=== PATIENT | female | born 1990 | race Caucasian/White ===

== ENCOUNTER 2020-10-08 05:35 | Emergency (ER) | payer OTHER ==
[2020-10-08 05:44] VITALS: TEMP 97.9
--- NOTE | 2020-10-08 05:49 | ED ---
Recheck HPI - General Source: patient, RN notes reviewed, old records reviewed Mode of arrival: ambulatory Limitations: no limitations - History of Present Illness MD Complaint: abnormal lab (rule out torsion) -: minutes(s) Returns Today for: persistent/worsening pain related to initial visit Symptoms Since Prior Visit: worsening pain Context: planned re-check Associated Symptoms: none, abdominal pain Treatments Prior to Arrival: urinary catheter in place, Given Pain Meds on <Jesse Babcock - Last Filed: 10/08/20 06:54> <Salvador Soto - Last Filed: 10/08/20 07:54> - General Chief Complaint: Abdominal Pain Stated Complaint: abd pain Time Seen by Provider: 10/08/20 05:48 - History of Present Illness Initial Comments: This is a 30-year-old female presents today for evaluation patient has a semi- transfer from an outside hospital sent in for ultrasound to rule out possible torsion. Patient did drive herself to the hospital in transfer, she is a denies chance of possible currently. Severe abdominal pain. Otherwise no injuries no fevers no other complaints (Jesse Babcock) - Related Data Allergies Allergy/AdvReac Type Severity Reaction Status Date / Time Penicillins Allergy Anaphylaxis Verified 10/08/20 05:44 Review of Systems ROS Other: All systems not noted in ROS Statement are negative. <Jesse Babcock - Last Filed: 10/08/20 06:54> ROS Other: All systems not noted in ROS Statement are negative. <Salvador Soto - Last Filed: 10/08/20 07:54> ROS Statement: Those systems with pertinent positive or pertinent negative responses have been documented in the HPI. Past Medical History Past Medical History: Fibromyalgia Additional Past Medical History / Comment(s): Endometreiosis, RA History of Any Multi-Drug Resistant Organisms: None Reported Additional Past Surgical History / Comment(s): D&C Past Psychological History: ADD/ADHD Smoking Status: Current every day smoker Past Alcohol Use History: None Reported Past Drug Use History: None Reported <Jesse Babcock - Last Filed: 10/08/20 06:54> General Exam Limitations: no limitations General appearance: alert, in no apparent distress Head exam: Present: atraumatic, normocephalic, normal inspection Eye exam: Present: normal appearance, PERRL, EOMI. Absent: scleral icterus, conjunctival injection, periorbital swelling ENT exam: Present: normal exam, mucous membranes moist Neck exam: Present: normal inspection. Absent: tenderness, meningismus, lymphadenopathy Respiratory exam: Present: normal lung sounds bilaterally. Absent: respiratory distress, wheezes, rales, rhonchi, stridor Cardiovascular Exam: Present: regular rate, normal rhythm, normal heart sounds. Absent: systolic murmur, diastolic murmur, rubs, gallop, clicks GI/Abdominal exam: Present: soft, normal bowel sounds. Absent: distended, tenderness, guarding, rebound, rigid Extremities exam: Present: normal inspection, full ROM, normal capillary refill. Absent: tenderness, pedal edema, joint swelling, calf tenderness Back exam: Present: normal inspection Neurological exam: Present: alert, oriented X3, CN II-XII intact Psychiatric exam: Present: normal affect, normal mood Skin exam: Present: warm, dry, intact, normal color. Absent: rash <Jesse Babcock - Last Filed: 10/08/20 06:54> Course <Jesse Babcock - Last Filed: 10/08/20 06:54> Vital Signs 10/08/20 05:40 Temperature 97.9 F Pulse Rate 65 Respiratory 22 Rate Blood Pressure 120/84 O2 Sat by Pulse 97 Oximetry - Reevaluation(s) Reevaluation #1: 10/08/20 06:55 Medical record is reviewed 10/08/20 06:55 Transferring paperwork is also been reviewed (Jesse Babcock) Reevaluation #2: 10/08/20 06:55 Patient currently does have pain control (Jesse Babcock) Medical Decision Making <Salvador Soto - Last Filed: 10/08/20 07:54> - Medical Decision Making 30-year-old presented emergency department for left lower abdominal pain was seen at an outside facility and sent here for ultrasound. WAS OBTAIN DIFFICULT TO OBTAIN LEFT OVARY, RIGHT OVARY WITHIN NORMAL LIMITS. I DID GO BACK IN AND REEVALUATED SHE STATES THAT HER PAIN HAS IMPROVED AND STATES THAT IT WAS IMPROVING BEFORE HER PAIN MEDS. PATIENT ABDOMEN IS SOFT PATIENT WAS SLEEPING UPON REEVALUATION. THIS IS FELT LESS LIKELY BE RELATED TO OVARIAN TORSION. I DID OFFER LAB WORK AND CT PATIENT DECLINES. PATIENT DISCHARGED IN STABLE CONDITION. (Salvador Soto) - Lab Data Lab Results 10/08/20 10/08/20 Range/Units 06:19 06:19 Urine Color Yellow Urine Appearance Cloudy H (Clear) Urine pH 7.0 (5.0-8.0) Ur Specific Phyllis 1.029 (1.001-1.035) Urine Protein Trace H (Negative) Urine Glucose (UA) Negative (Negative) Urine Ketones Negative (Negative) Urine Blood Small H (Negative) Urine Nitrite Negative (Negative) Urine Bilirubin Negative (Negative) Urine Urobilinogen 3.0 (<2.0) mg/dL Ur Leukocyte Esterase Trace H (Negative) Urine RBC 4 (0-5) /hpf Urine WBC 4 (0-5) /hpf Ur Squamous Epith Cells 1 (0-4) /hpf Amorphous Sediment Rare H (None) /hpf Urine Bacteria Rare H (None) /hpf Urine Mucus Rare H (None) /hpf Urine HCG, Qual Not Detected (Not Detectd) Disposition <Jesse Babcock - Last Filed: 10/08/20 06:54> Is patient prescribed a controlled substance at d/c from ED?: No Time of Disposition: 07:54 <Salvador Soto - Last Filed: 10/08/20 07:54> Clinical Impression: Abdominal pain Disposition: HOME SELF-CARE Condition: Stable Instructions (If sedation given, give patient instructions): Abdominal Pain (ED) Additional Instructions: Please return to the Emergency Department if symptoms worsen or any other concerns. Referrals: Aamir Barreto MD [Primary Care Provider] - 1-2 days
[2020-10-08] MEDS ORDERED: HYDROmorphone 1 MG/ML 1 ML SYRINGE IM STA (05:52)
[2020-10-08 06:32] LABS: Amorphous Sediment,Urine Rare /hpf; Appearance,Urine Cloudy (Clear); Bacteria,Urine Rare /hpf; Bilirubin,Urine Negative (Negative); Blood,Urine Small (Negative); Color,Urine Yellow; Glucose,Urine (UA) Negative (Negative); Ketones,Urine Negative (Negative); Leukocyte Esterase,Urine Trace (Negative); Mucus,Urine Rare /hpf; Nitrite,Urine Negative (Negative); Protein,Urine Trace (Negative); RBC,Urine 4 /hpf (0-5); Specific Gravity,Urine 1.029 (1.001-1.035); Squamous Epithelial Cell,Urine 1 /hpf (0-4); WBC,Urine 4 /hpf (0-5)
--- NOTE | 2020-10-08 07:41 | US ---
EXAMINATION TYPE: US transvaginal plus Dopplers DATE OF EXAM: 10/08/2020 COMPARISON: NONE CLINICAL HISTORY: 30-year-old female Left pelvic pain and nausea x 1 day, 4, para 4, history of irregular cycles. TECHNIQUE: Transvaginal ER exam. Date of LMP: 08/11/2020 FINDINGS: EXAM MEASUREMENTS: Uterus: 10.5 x 5.2 x 6.0 cm Endometrial Stripe: 0.3 cm Right Ovary: 3.7 x 2.3 x 2.2 cm for volume of 9.9 mL. Left Ovary: not seen 1. Uterus: anteverted, the myometrium is mildly heterogeneous 2. Endometrium: small amount of fluid seen within the uterine cavity 3. Right Ovary: wnl with follicular change. 4. Left Ovary: not seen due to overlying bowel gas Spectral, color and waveform doppler imaging shows good arterial and venous flow within the right o vary; there is no evidence for ovarian torsion within the right ovary. Venous flow is demonstrated wi th faint arterial flow as well. 5. Bilateral Adnexa: wnl 6. Posterior cul-de-sac: wnl IMPRESSION: Normal follicular change in the right ovary. No sonographic evidence for right ovarian torsion. The l eft ovary could not be visualized.
[2020-10-08] MEDS ORDERED: IBUPROFEN 600 MG STARTER PACK 4 TAB BTL PO STA (07:54)
[2020-10-08] MEDS ORDERED: ACET/COD 300 MG/30 MG STARTER PACK 6 TAB BTL PO STA (07:54)
[2020-10-08 08:15] VITALS: BP 132/86; PULSE 86; RESP 16
== END 2020-10-08 08:22 | disposition home or self-care (01) ==
LOC: EC 05:35 → SUPCPDRO 05:35 → EC 08:22
DX: R10.30 Lower abdominal pain, unspecified (principal); F17.200 Nicotine dependence, unspecified, uncomplicated; Z88.0 Allergy status to penicillin
CPT/HCPCS: 81001; 81025; 93976; 76830; 96372; 99285; J1170

== ENCOUNTER 2020-11-02 21:31 | Emergency (ER) | payer OTHER ==
[2020-11-02 21:37] VITALS: TEMP 97.9
--- NOTE | 2020-11-02 22:28 | ED ---
Chest Pain HPI - General Chief Complaint: Chest Pain Stated Complaint: Chest Pain Time Seen by Provider: 11/02/20 22:26 Source: patient Mode of arrival: ambulatory Limitations: no limitations - History of Present Illness Initial Comments: This patient is a 30-year-old woman who presents to be evaluated for left-sided chest pain. The patient states that she works midnight since she noticed it intermittently last night. She states it was initially sharp stabbing pain that would last for a second or 2 and go away. She states that when she woke up to day at 4 PM she noticed that it was now constant and then over the past couple of hours has become severe. She states that it is worse if she takes a deep breath. She denies other associated symptoms. No fever or chills. No dyspnea, diaphoresis, nausea or vomiting. No leg pain or swelling. No history of DVT/PE MD Complaint: chest pain Onset/Timin -: days(s) Onset: during rest Pain Location: left chest Pain Radiation: none Severity: severe Quality: sharp Consistency: constant Improves With: nothing Worsens With: inspiration Treatments Prior to Arrival: none - Related Data On Oral Contraceptives: No Previous Rx's Medication Instructions Recorded HYDROcodone/APAP 5-325MG [[place] 1 tab PO Q6HR PRN 3 Days #12 tab 11/03/20 5-325] Ibuprofen 800 mg PO TID #20 tablet 11/03/20 Allergies Allergy/AdvReac Type Severity Reaction Status Date / Time Penicillins Allergy Anaphylaxis Verified 11/02/20 21:37 Review of Systems ROS Statement: Those systems with pertinent positive or pertinent negative responses have been documented in the HPI. ROS Other: All systems not noted in ROS Statement are negative. Constitutional: Denies: fever, chills Respiratory: Denies: cough, dyspnea, wheezes, hemoptysis Cardiovascular: Reports: chest pain. Denies: palpitations, orthopnea, edema, syncope Gastrointestinal: Denies: abdominal pain, nausea, vomiting, diarrhea, constipation Genitourinary: Denies: dysuria, hematuria, abnormal menses Musculoskeletal: Denies: back pain Skin: Denies: rash Neurological: Denies: headache, weakness EKG Findings - EKG Results: EKG: interpreted by ERMD, sinus rhythm, normal axis, normal QRS, normal ST/T EKG shows: tachycardia (Rate approximately 112 bpm) Past Medical History Past Medical History: Fibromyalgia Additional Past Medical History / Comment(s): Endometreiosis, RA History of Any Multi-Drug Resistant Organisms: None Reported Additional Past Surgical History / Comment(s): D&C Past Psychological History: ADD/ADHD Smoking Status: Current every day smoker Past Alcohol Use History: None Reported Past Drug Use History: None Reported General Exam Limitations: no limitations General appearance: alert, in no apparent distress Head exam: Present: atraumatic, normocephalic Eye exam: Present: normal appearance. Absent: scleral icterus, conjunctival injection ENT exam: Present: normal oropharynx Neck exam: Present: normal inspection Respiratory exam: Present: normal lung sounds bilaterally, chest wall tenderness. Absent: respiratory distress, wheezes, rales, rhonchi, stridor, accessory muscle use, decreased breath sounds, prolonged expiratory Cardiovascular Exam: Present: normal rhythm, tachycardia, normal heart sounds. Absent: systolic murmur, diastolic murmur, rubs, gallop GI/Abdominal exam: Present: soft. Absent: distended, tenderness, guarding, rebound, rigid, mass Extremities exam: Present: normal inspection, normal capillary refill. Absent: pedal edema, calf tenderness Back exam: Present: normal inspection. Absent: CVA tenderness (R), CVA tenderness (L) Neurological exam: Present: alert Skin exam: Present: warm, dry, intact, normal color. Absent: rash Course Vital Signs 11/02/20 11/02/20 11/02/20 21:34 22:58 23:40 Temperature 97.9 F Pulse Rate 113 H 105 H Pulse Rate [ 105 H Wedger Machine ] Respiratory 18 18 16 Rate Blood Pressure 144/99 141/81 O2 Sat by Pulse 100 97 Oximetry Disposition Clinical Impression: Pleuritis Disposition: HOME SELF-CARE Condition: Good Instructions (If sedation given, give patient instructions): Pleurisy (DC) Prescriptions: Ibuprofen 800 mg PO TID #20 tablet HYDROcodone/APAP 5-325MG [[place] 5-325] 1 tab PO Q6HR PRN 3 Days #12 tab PRN Reason: Pain Is patient prescribed a controlled substance at d/c from ED?: Yes When asked, does pt state using other controlled substances?: No If prescribed controlled substance>3 days was MAPS reviewed?: Prescribed <3 Days If opioid is for acute pain is fill amount 7 days or less?: Yes If Rx opioid, was Start Talking consent form obtained?: Yes Referrals: None,Stated [Primary Care Provider] - 1-2 days
[2020-11-02] MEDS ORDERED: MORPHINE SULFATE 4 MG/ML SYRINGE IV STA (22:38)
[2020-11-02] MEDS ORDERED: SODIUM CHLORIDE 0.9% 500 ML 500 ML IV STA (22:38)
[2020-11-02] MEDS ORDERED: KETOROLAC 15 MG/ML 1 ML VIAL IVP STA (22:38)
[2020-11-02 23:09] LABS: Basophils % (A) 1 %; Eosinophils # (A) 0.1 k/uL (0-0.7); Eosinophils % (A) 1 %; HCT 39.8 % (34.0-46.0); HGB 13.7 gm/dL (11.4-16.0); Lymphocytes # (A) 1.9 k/uL (1.0-4.8); Lymphocytes % (A) 36 %; MCH 31.8 pg (25.0-35.0); MCHC 34.4 g/dL (31.0-37.0); MCV 92.3 fL (80.0-100.0); Mean Platelet Volume 7.7; Monocytes # (A) 0.4 k/uL (0-1.0); Monocytes % (A) 7 %; Neutrophils # (A) 2.8 k/uL (1.3-7.7); Neutrophils % (A) 53 %; Platelet Count 219 k/uL (150-450); RBC 4.31 m/uL (3.80-5.40); RDW 12.4 % (11.5-15.5); WBC 5.4 k/uL (3.8-10.6)
[2020-11-02 23:24] LABS: D-Dimer <0.17 mg/L FEU (<0.60); Partial Thromboplastin Time 25.5 sec (22.0-30.0); Prothrombin Time 10.9 sec (9.0-12.0)
[2020-11-02 23:25] LABS: Amorphous Sediment,Urine Few /hpf; Appearance,Urine Cloudy (Clear); Bilirubin,Urine Negative (Negative); Blood,Urine Small (Negative); Color,Urine Yellow; Glucose,Urine (UA) Negative (Negative); Ketones,Urine Negative (Negative); Leukocyte Esterase,Urine Negative (Negative); Mucus,Urine Occasional /hpf; Nitrite,Urine Negative (Negative); PH, Urine 6.5 (5.0-8.0); Protein,Urine Negative (Negative); RBC,Urine 8 /hpf (0-5); Specific Gravity,Urine 1.016 (1.001-1.035); Squamous Epithelial Cell,Urine <1 /hpf (0-4); Urobilinogen,Urine <2.0 mg/dL (<2.0); WBC,Urine 1 /hpf (0-5)
[2020-11-02 23:28] LABS: ALT 19 U/L (4-34); AST 28 U/L (14-36); African American GFR (CKD) >90 (>60 ml/min/1.73 sqM); Albumin 4.4 g/dL (3.5-5.0); Alkaline Phosphatase 51 U/L (38-126); Anion Gap 11 mmol/L; Blood Urea Nitrogen 12 mg/dL (7-17); Calcium 9.3 mg/dL (8.4-10.2); Carbon Dioxide 24 mmol/L (22-30); Chloride 105 mmol/L (98-107); Glucose 118 mg/dL (74-99); Magnesium 1.9 mg/dL (1.6-2.3); Non-African American GFR(CKD) >90 (>60 ml/min/1.73 sqM); Potassium 3.5 mmol/L (3.5-5.1); Sodium 140 mmol/L (137-145); Total Protein 7.4 g/dL (6.3-8.2)
--- NOTE | 2020-11-02 23:36 | XR ---
EXAMINATION TYPE: XR chest 2V DATE OF EXAM: 11/02/2020 COMPARISON: NONE HISTORY: Chest pain TECHNIQUE: 2 views FINDINGS: Heart and mediastinum are normal. Lungs are clear. Diaphragm is normal. There are chest fabi ds. Bony thorax is intact. IMPRESSION: Normal chest.
[2020-11-02 23:49] VITALS: RESP 16
[2020-11-03] MEDS ORDERED: MORPHINE SULFATE 4 MG/ML SYRINGE IV STA (00:24)
[2020-11-03 01:26] VITALS: BP 131/95; PULSE 88
== END 2020-11-03 01:52 | disposition home or self-care (01) ==
LOC: EC 21:31
DX: R09.1 Pleurisy (principal); R00.0 Tachycardia, unspecified; F17.200 Nicotine dependence, unspecified, uncomplicated; Z88.0 Allergy status to penicillin
CPT/HCPCS: 36415; 93005; 85379; 80053; 83735; 84484; 85025; 85610; 85730; 81001; 81025; 71046; 99285; 96374; 96375; 96376; 96361 ×3; J2270 ×2; J1885

== ENCOUNTER → 2020-12-25 | Outpatient (CLI) | payer OTHER ==
--- NOTE | 2020-12-28 10:26 | MM ---
Reason for exam: clinical finding. Baseline mammogram. History: Family history of breast cancer in maternal grandmother at age 40. Took hormonal contraceptives for 6 months beginning at age 29. Physical Findings: Nurse did not find any significant physical abnormalities on exam. MG 3D Diag Mammo W/Cad DEXTER Bilateral CC and MLO view(s) were taken. The breast tissue is heterogeneously dense. This may lower the sensitivity of mammography. Finding: There are 4 indeterminate, fine, grouped/clustered calcifications in the upper outer quadrant, middle position of the left breast. These results were verbally communicated with the patient and result sheet given to the patient on 12/25/20. ASSESSMENT: Probably benign, BI-RAD 3 RECOMMENDATION: Follow-up diagnostic mammogram of both breasts in 6 months.
--- NOTE | 2020-12-28 10:28 | USB ---
Reason for exam: clinical finding. History: Family history of breast cancer in maternal grandmother at age 40. Took hormonal contraceptives for 6 months beginning at age 29. US Breast BILAT Right complete breast ultrasound includes all four quadrants, the retroareolar region and axilla. Finding demonstrates no cystic or solid lesion seen. Left complete breast ultrasound includes all four quadrants, the retroareolar region and axilla. Finding demonstrates no cystic or solid lesion seen. These results were verbally communicated with the patient and result sheet given to the patient on 12/25/20. ASSESSMENT: Negative, BI-RAD 1 RECOMMENDATION: Follow-up diagnostic mammogram of both breasts in 6 months. Manage patient on a clinical basis.
== END | disposition home or self-care (01) ==
LOC: RADMAMWWP 13:00
PROVIDERS: ATTEND Family Medicine
DX: R92.1 Mammographic calcification found on diagnostic imaging of breast (principal); Z80.3 Family history of malignant neoplasm of breast
CPT/HCPCS: 77066; 76641; G0279; 77062

== ENCOUNTER 2021-04-26 08:44 | Emergency (ER) | payer OTHER ==
[2021-04-26 08:49] VITALS: RESP 16; TEMP 97.7
[2021-04-26] MEDS ORDERED: HYDROcodone/APAP 5-325MG 1 EACH TAB PO STA (09:11)
--- NOTE | 2021-04-26 09:45 | ED ---
Skin/Abscess/FB HPI - General Chief complaint: Skin/Abscess/Foreign Body Stated complaint: lump on breast Time Seen by Provider: 04/26/21 08:51 Source: patient, RN notes reviewed Mode of arrival: ambulatory Limitations: no limitations - History of Present Illness Initial comments: This a 31-year-old female presents emergency from chief complaint of right breast lump. Patient states that she recently was seen for ultrasound and mammogram as she had some swelling of her left breast and lymph nodes. Patient found to have benign findings and recommended for repeat in 6 months. Patient states she just now developed right sided breast pain with a lump inferior to the nipple. Patient denies any traumano redness. Patient states she just had her menstrual cycle 2 weeks ago. - Related Data Previous Rx's Medication Instructions Recorded Cephalexin [Keflex] 500 mg PO Q6HR #28 cap 04/26/21 Allergies Allergy/AdvReac Type Severity Reaction Status Date / Time Penicillins Allergy Anaphylaxis Verified 04/26/21 09:41 Review of Systems ROS Statement: Those systems with pertinent positive or pertinent negative responses have been documented in the HPI. ROS Other: All systems not noted in ROS Statement are negative. Past Medical History Past Medical History: Fibromyalgia Additional Past Medical History / Comment(s): Endometreiosis, RA History of Any Multi-Drug Resistant Organisms: None Reported Additional Past Surgical History / Comment(s): D&C Past Psychological History: ADD/ADHD Smoking Status: Current every day smoker Past Alcohol Use History: None Reported Past Drug Use History: Marijuana General Exam Limitations: no limitations General appearance: alert, in no apparent distress Head exam: Present: atraumatic, normocephalic, normal inspection Respiratory exam: Present: normal lung sounds bilaterally. Absent: respiratory distress, wheezes, rales, rhonchi, stridor Cardiovascular Exam: Present: regular rate, normal rhythm, normal heart sounds. Absent: systolic murmur, diastolic murmur, rubs, gallop, clicks Neurological exam: Present: alert Skin exam: Present: warm, dry, intact, normal color, other (Right breast inferior to the nipple and they are all approximately 7 o'clock position there is a palpable small lump that is tender with palpation, no drainage no retraction the nipple no orange peeling noted exam performed with RN). Absent: rash Course Vital Signs 08/16/21 08:45 Temperature 97.7 F Pulse Rate 92 Respiratory 16 Rate Blood Pressure 119/82 O2 Sat by Pulse 99 Oximetry Medical Decision Making - Medical Decision Making Ultrasound shows small cystic mass, rule out phlegmon patient a antibiotics warm compresses will follow-up for repeat ultrasound as directed. Disposition Clinical Impression: Lump of right breast Disposition: HOME SELF-CARE Condition: Stable Instructions (If sedation given, give patient instructions): Mastitis (ED) Additional Instructions: Please return to the Emergency Department if symptoms worsen or any other concerns. Prescriptions: Cephalexin [Keflex] 500 mg PO Q6HR #28 cap Is patient prescribed a controlled substance at d/c from ED?: No Referrals: Iam Byrd MD [Primary Care Provider] - 1-2 days Time of Disposition: 10:48
--- NOTE | 2021-04-26 10:11 | USB ---
Reason for exam: clinical finding. History: Family history of breast cancer in maternal grandmother at age 40. Took hormonal contraceptives for 6 months beginning at age 29. US Breast Limited RT Right limited breast ultrasound including focal area of concern, retroareolar and axilla demonstrates a 1.6 x 0.8 x 1.5cm oval, hypoechoic lesion at the posterior nipple at BB and area of pain. Probable phlegmon mass not excluded. Recommend short term follow up. ASSESSMENT: Probably benign, BI-RAD 3 RECOMMENDATION: Ultrasound of the right breast in 1 month. (6 weeks)
[2021-04-26 11:08] VITALS: BP 120/68; PULSE 88
== END 2021-04-26 11:06 | disposition home or self-care (01) ==
LOC: EC 08:44
DX: N63.13 Unspecified lump in the right breast, lower outer quadrant (principal); F17.200 Nicotine dependence, unspecified, uncomplicated; Z88.0 Allergy status to penicillin
CPT/HCPCS: 99283

== ENCOUNTER 2021-04-30 08:21 | Observation (INO) | payer OTHER ==
[2021-04-30] MEDS ORDERED: KETOROLAC 15 MG/ML 1 ML VIAL IVP STA (09:26)
[2021-04-30 09:32] LABS: Basophils % (A) 1 %; Eosinophils # (A) 0.1 k/uL (0-0.7); Eosinophils % (A) 1 %; HGB 14.2 gm/dL (11.4-16.0); Lymphocytes # (A) 1.9 k/uL (1.0-4.8); Lymphocytes % (A) 22 %; MCH 32.5 pg (25.0-35.0); MCHC 33.8 g/dL (31.0-37.0); MCV 95.9 fL (80.0-100.0); Mean Platelet Volume 7.8; Monocytes # (A) 0.5 k/uL (0-1.0); Monocytes % (A) 6 %; Neutrophils % (A) 69 %; Platelet Count 262 k/uL (150-450); RBC 4.38 m/uL (3.80-5.40); RDW 12.8 % (11.5-15.5); WBC 8.8 k/uL (3.8-10.6)
[2021-04-30 09:45] LABS: ALT 16 U/L (4-34); African American GFR (CKD) >90 (>60 ml/min/1.73 sqM); Anion Gap 7 mmol/L; Blood Urea Nitrogen 12 mg/dL (7-17); Calcium 9.1 mg/dL (8.4-10.2); Carbon Dioxide 23 mmol/L (22-30); Chloride 109 mmol/L (98-107); Glucose 103 mg/dL (74-99); Non-African American GFR(CKD) >90 (>60 ml/min/1.73 sqM); Sodium 139 mmol/L (137-145); Total Bilirubin 0.7 mg/dL (0.2-1.3); Total Protein 7.1 g/dL (6.3-8.2)
[2021-04-30 09:53] LABS: AST 38 U/L (14-36); Alkaline Phosphatase 45 U/L (38-126); Potassium 4.6 mmol/L (3.5-5.1)
--- NOTE | 2021-04-30 09:58 | USB ---
Reason for exam: clinical finding. History: Family history of breast cancer in maternal grandmother at age 40. Took hormonal contraceptives for 6 months beginning at age 29. US Breast Limited RT Right limited breast ultrasound including focal area of concern, retroareolar and axilla demonstrates a 2.3 x 1.0 x 2.2cm oval, hypoechoic, vascular lesion at posterior nipple, painful palpable, a 0.8cm lymph node at the axilla and a 0.6cm lymph node at the axilla, slightly larger lesion suspect focal abscess. ASSESSMENT: Probably benign, BI-RAD 3 RECOMMENDATION: Clinical management of the right breast. Consider ultrasound guided aspiration. Manage on a clinical basis.
[2021-04-30] MEDS ORDERED: VANCOMYCIN IV PER PHARMACY 1 EACH MISC MISCELLANE PRN (10:15)
[2021-04-30] MEDS ORDERED: ACETAMINOPHEN TAB 325 MG TAB PO PRN (10:16)
[2021-04-30] MEDS ORDERED: NALOXONE 0.4 MG/ML 1 ML VIAL IV PRN (10:16)
[2021-04-30] MEDS ORDERED: CLINDAMYCIN 600 MG in DEXTROSE 5% IN WATER 50 ML IVPB STA ×2 (10:16)
--- NOTE | 2021-04-30 10:17 | ED ---
General Adult HPI - General Chief complaint: Recheck/Abnormal Lab/Rx Stated complaint: Cyst on Rt Breast Time Seen by Provider: 04/30/21 08:35 Source: patient, RN notes reviewed, old records reviewed Mode of arrival: ambulatory Limitations: no limitations - History of Present Illness Initial comments: 31-year-old with worsening pain and swelling of the right breast. No drainage. No fever. Patient is a nondiabetic otherwise healthy. She denies current . She has been treated with oral antibiotics without improvement. She states the redness and pain has worsened. No abdominal pain nausea vomiting. No reported fever. - Related Data Previous Rx's Medication Instructions Recorded Cephalexin [Keflex] 500 mg PO Q6HR #28 cap 04/26/21 Allergies Allergy/AdvReac Type Severity Reaction Status Date / Time Penicillins Allergy Anaphylaxis Verified 04/26/21 09:41 Review of Systems ROS Statement: Those systems with pertinent positive or pertinent negative responses have been documented in the HPI. ROS Other: All systems not noted in ROS Statement are negative. Past Medical History Past Medical History: Fibromyalgia Additional Past Medical History / Comment(s): Endometreiosis, RA History of Any Multi-Drug Resistant Organisms: None Reported Additional Past Surgical History / Comment(s): D&C Past Psychological History: ADD/ADHD Smoking Status: Current every day smoker Past Alcohol Use History: None Reported Past Drug Use History: Marijuana General Exam Limitations: no limitations General appearance: alert, in no apparent distress Head exam: Present: atraumatic, normocephalic Eye exam: Present: normal appearance, PERRL Neck exam: Present: normal inspection. Absent: tenderness, meningismus Respiratory exam: Present: normal lung sounds bilaterally. Absent: respiratory distress, wheezes Cardiovascular Exam: Present: regular rate, normal rhythm GI/Abdominal exam: Present: soft. Absent: distended, tenderness, guarding Extremities exam: Present: normal inspection, normal capillary refill. Absent: pedal edema Neurological exam: Present: alert, oriented X3, CN II-XII intact. Absent: motor sensory deficit Psychiatric exam: Present: normal affect, normal mood Skin exam: Present: warm, dry, other (Breast exam: Patient has erythema and induration on the lateral aspect of the right nipple. Exam performed with nurse Hall) Course Vital Signs 04/30/21 08:28 Temperature 98.2 F Pulse Rate 78 Respiratory 18 Rate Blood Pressure 120/70 O2 Sat by Pulse 99 Oximetry - Reevaluation(s) Reevaluation #1: 04/30/21 0930 Patient had also been seen by the physician litigation legal assistant who had seen the patient several days prior does indicate that the swelling and erythema is much worse. Medical Decision Making - Medical Decision Making 31-year-old female with increased pain and swelling of the right breast, treated with oral antibiotics and has failed to improve. Showing Hypoechoic Region Likely Abscess. IV Antibiotics Are Initiated. Laboratory Testing Performed Which Is Unremarkable. Patient Will Be Admitted to Dr. Lechuga with Breast Surgery on Consult. - Lab Data Result diagrams: 04/30/21 09:21 04/30/21 09:21 Lab Results 04/30/21 04/30/21 04/30/21 Range/Units 09: 09: 09:21 WBC 8.8 (3.8-10.6) k/uL RBC 4.38 (3.80-5.40) m/uL Hgb 14.2 (11.4-16.0) gm/dL Hct 42.0 (34.0-46.0) % MCV 95.9 (80.0-100.0) fL MCH 32.5 (25.0-35.0) pg MCHC 33.8 (31.0-37.0) g/dL RDW 12.8 (11.5-15.5) % Plt Count 262 (150-450) k/uL MPV 7.8 Neutrophils % 69 % Lymphocytes % 22 % Monocytes % 6 % Eosinophils % 1 % Basophils % 1 % Neutrophils # 6.0 (1.3-7.7) k/uL Lymphocytes # 1.9 (1.0-4.8) k/uL Monocytes # 0.5 (0-1.0) k/uL Eosinophils # 0.1 (0-0.7) k/uL Basophils # 0.0 (0-0.2) k/uL Sodium 139 (137-145) mmol/L Potassium 4.6 (3.5-5.1) mmol/L Chloride 109 H (98-107) mmol/L Carbon Dioxide 23 (22-30) mmol/L Anion Gap 7 mmol/L BUN 12 (7-17) mg/dL Creatinine 0.64 (0.52-1.04) mg/dL Est GFR (CKD-EPI)AfAm >90 (>60 ml/min/1.73 sqM) Est GFR (CKD-EPI)NonAf >90 (>60 ml/min/1.73 sqM) Glucose 103 H (74-99) mg/dL Plasma Lactic Acid Eric 1.1 (0.7-2.0) mmol/L Calcium 9.1 (8.4-10.2) mg/dL Total Bilirubin 0.7 (0.2-1.3) mg/dL AST 38 H (14-36) U/L ALT 16 (4-34) U/L Alkaline Phosphatase 45 (38-126) U/L Total Protein 7.1 (6.3-8.2) g/dL Albumin 4.0 (3.5-5.0) g/dL Disposition Clinical Impression: Breast abscess, Cellulitis Disposition: ADMITTED IP TO THIS [facility] Condition: Stable Is patient prescribed a controlled substance at d/c from ED?: No Referrals: Iam Byrd MD [Primary Care Provider] - 1-2 days Decision to Admit Reason: Admit from EC Decision Date: 04/30/21 Decision Time: 10:22
[2021-04-30] MEDS ORDERED: VANCOMYCIN 1,250 MG in SODIUM CHLORIDE 0.9% 250 ML IVPB STA (10:29)
[2021-04-30] MEDS: SODIUM CHLORIDE 0.9% 1,000 ML IV SCH (10:51)
[2021-04-30] MEDS: HYDROmorphone 0.5 MG/0.5 ML SYRINGE IVP PRN ×5 (10:52→23:13)
[2021-04-30 10:59] LABS: Appearance,Urine Clear (Clear); Bilirubin,Urine Negative (Negative); Blood,Urine Negative (Negative); Color,Urine Light Yellow; Glucose,Urine (UA) Negative (Negative); Ketones,Urine Negative (Negative); Leukocyte Esterase,Urine Trace (Negative); Nitrite,Urine Negative (Negative); PH, Urine 7.5 (5.0-8.0); Protein,Urine Negative (Negative); Specific Gravity,Urine 1.011 (1.001-1.035); Squamous Epithelial Cell,Urine 1 /hpf (0-4); Urobilinogen,Urine <2.0 mg/dL (<2.0); WBC,Urine 12 /hpf (0-5)
[2021-04-30] MEDS: NICOTINE 14MG/24HR PATCH TRANSDERM SCH (12:13)
--- NOTE | 2021-04-30 14:02 | P.GSCN ---
History of Present Illness Consult date: 04/30/21 Reason for Consult: Right breast abscess History of present illness: 31-year-old female presents to the ER with increasing pain right breast near her nipple. Patient was seen in the ER on Monday started on oral Keflex. Patient says symptoms have gotten worse since then. She is otherwise healthy. She is not breast-feeding. No nipple piercings. No history of similar events. Patient is a smoker. Ultrasound was done which showed a probable abscess retroareolar Review of Systems The patient denies any acute changes in vision or hearing, no dysphagia or odynophagia, no chest pain or shortness of breath, no dysuria or hematuria, no headache, no runny nose, no rectal bleeding or melena, no unexplained weight loss Past Medical History Past Medical History: Fibromyalgia Additional Past Medical History / Comment(s): Endometreiosis, RA History of Any Multi-Drug Resistant Organisms: None Reported Additional Past Surgical History / Comment(s): D&C Past Psychological History: ADD/ADHD Smoking Status: Current every day smoker Past Alcohol Use History: None Reported Past Drug Use History: Marijuana - Past Family History Mother History Unknown: Yes Medications and Allergies Home Medications Medication Instructions Recorded Confirmed Type Cephalexin [Keflex] 500 mg PO Q6HR #28 cap 04/26/21 04/30/21 Rx Allergies Allergy/AdvReac Type Severity Reaction Status Date / Time Penicillins Allergy Anaphylaxis Verified 04/30/21 10:29 Surgical - Exam Vital Signs Temp Pulse Resp BP Pulse Ox 98.2 F 78 18 120/70 99 04/30/21 08:28 04/30/21 08:28 04/30/21 08:28 04/30/21 08:28 04/30/21 08:28 Physical exam: General: Well-developed, well-nourished HEENT: Normocephalic, sclerae nonicteric Right breast: Induration and tenderness with mild erythema around the areola, majority of tenderness and induration present laterally in the subareolar location Left breast: No masses, no adenopathy Abdomen: Nontender, nondistended Extremities: No edema Neuro: Alert and oriented Results - Labs 04/30/21 09:21 04/30/21 09:21 Abnormal Lab Results - Last 24 Hours (Table) 08/20/21 08/20/21 Range/Units 09:21 10:47 Chloride 109 H (98-107) mmol/L Glucose 103 H (74-99) mg/dL AST 38 H (14-36) U/L Ur Leukocyte Esterase Trace H (Negative) Urine WBC 12 H (0-5) /hpf Diabetes panel 04/30/21 Range/Units 09:21 Sodium 139 (137-145) mmol/L Potassium 4.6 (3.5-5.1) mmol/L Chloride 109 H (98-107) mmol/L Carbon Dioxide 23 (22-30) mmol/L BUN 12 (7-17) mg/dL Creatinine 0.64 (0.52-1.04) mg/dL Glucose 103 H (74-99) mg/dL Calcium 9.1 (8.4-10.2) mg/dL AST 38 H (14-36) U/L ALT 16 (4-34) U/L Alkaline Phosphatase 45 (38-126) U/L Total Protein 7.1 (6.3-8.2) g/dL Albumin 4.0 (3.5-5.0) g/dL Calcium panel 04/30/21 Range/Units 09:21 Calcium 9.1 (8.4-10.2) mg/dL Albumin 4.0 (3.5-5.0) g/dL Pituitary panel 04/30/21 Range/Units 09:21 Sodium 139 (137-145) mmol/L Potassium 4.6 (3.5-5.1) mmol/L Chloride 109 H (98-107) mmol/L Carbon Dioxide 23 (22-30) mmol/L BUN 12 (7-17) mg/dL Creatinine 0.64 (0.52-1.04) mg/dL Glucose 103 H (74-99) mg/dL Calcium 9.1 (8.4-10.2) mg/dL Adrenal panel 04/30/21 Range/Units 09:21 Sodium 139 (137-145) mmol/L Potassium 4.6 (3.5-5.1) mmol/L Chloride 109 H (98-107) mmol/L Carbon Dioxide 23 (22-30) mmol/L BUN 12 (7-17) mg/dL Creatinine 0.64 (0.52-1.04) mg/dL Glucose 103 H (74-99) mg/dL Calcium 9.1 (8.4-10.2) mg/dL Total Bilirubin 0.7 (0.2-1.3) mg/dL AST 38 H (14-36) U/L ALT 16 (4-34) U/L Alkaline Phosphatase 45 (38-126) U/L Total Protein 7.1 (6.3-8.2) g/dL Albumin 4.0 (3.5-5.0) g/dL Assessment and Plan (1) Breast abscess Narrative/Plan: 31-year-old female with right breast abscess. Options of continued antibiotics, ultrasound-guided or bedside aspiration, incision and drainage. Patient states she will not have anything performed without anesthesia. She is agreeable to incision and drainage in the operating room. We'll schedule for I&D right breast abscess tomorrow. Risks of bleeding, infection, wound, scarring, poor healing, recurrence, fistula. Patient understands and wishes to proceed. Current Visit: Yes Status: Acute Code(s): N61.1 - ABSCESS OF THE BREAST AND NIPPLE SNOMED Code(s): 01491336
[2021-04-30] MEDS: CLINDAMYCIN 600 MG in DEXTROSE 5% IN WATER 50 ML IVPB SCH ×4 (16:54→23:11)
[2021-04-30] MEDS ORDERED: VANCOMYCIN 1,250 MG in SODIUM CHLORIDE 0.9% 250 ML IVPB SCH (20:00)
--- NOTE | 2021-04-30 20:37 | P.HPIM ---
History of Present Illness H&P Date: 04/30/21 Chief Complaint: Right breast abscess History of presenting complaint: This is a pleasant 31-year-old patient follows with Dr. Byrd. Patient at the age of 17 years was diagnosed with rheumatoid arthritis and fibromyalgia. She was that time per her methotrexate and folic acid. Patient did not feel good about it and subsequently at [facility]. The same. Otherwise in good health. She has a 2-year-old daughter. 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 About 2 weeks ago she noticed tenderness in the right breast behind the nipple. It progressively became worse. No fever no chills. No local trauma.. She presented to the ER on April 26. Breast ultrasound was done. A phlegmon could not be ruled out. She was discharged on Keflex 500 mg 4 times a day. She took it for about 2 days. Symptoms have been getting worse. Locks more tenderness. Localized. Decided to come in. Repeat breast ultrasound was done. Review of systems: GEN.: None EYES: None HEENT: None NECK: None RESPIRATORY: None CARDIOVASCULAR: None GASTROINTESTINAL: None GENITOURINARY: None MUSCULOSKELETAL: Chronic joint pains LYMPHATICS: None HEMATOLOGICAL: None PSYCHIATRY: None NEUROLOGICAL: None Past medical history to include: Rheumatoid arthritis, fibromyalgia Social history: Patient lives with her and. 2-year-old daughter. No alcohol. 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 Reviewed Physical examination: VITAL SIGNS: 97.8, 56, 16, 98/60, 99% room air GENERAL: BMI 24.3, reclining in bed, comfortable. EYES: Pupils equal. Conjunctiva normal. HEENT: External appearance of nose and ears normal, oral cavity grossly normal. NECK: JVD not raised; masses not palpable. HEART: First and second heart sounds are normal; no edema. LUNGS: Respiratory rate normal; clear to auscultation. ABDOMEN: Soft, nontender, liver spleen not palpable, no masses palpable. PSYCH: Alert and oriented x3; mood and affect normal. 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 Overlying skin looks rather normal NEUROLOGICAL: Cranial nerves grossly intact; no facial asymmetry, power and sensation grossly intact. LYMPHATICS: No lymph nodes palpable in the axilla and neck INVESTIGATIONS, reviewed in the clinical context: White count 8.8 hemoglobin 14.2 platelets 262 potassium 4.6 creatinine 0.64 Breast ultrasound report noted. Assessment and plan: -Right breast localized phlegmon. Patient's had ALLERGIC reaction to penicillin with hives. No plate the patient on IV clindamycin. General surgery consulted. -Chronic rheumatoid arthritis Patient has not followed with a firearms sales associate for a long time. We'll recommend to follow the same upon discharge -Chronic nicotine dependence, cigarettes smoker Nicotine patch 14 IV clindamycin. Warm compress. Consult general surgery. Care was discussed questions answered. - Past Medical History Past Medical History: Fibromyalgia Additional Past Medical History / Comment(s): Endometreiosis, RA History of Any Multi-Drug Resistant Organisms: None Reported Additional Past Surgical History / Comment(s): D&C Past Psychological History: ADD/ADHD Smoking Status: Current every day smoker Past Alcohol Use History: None Reported Past Drug Use History: Marijuana - Past Family History Mother History Unknown: Yes Medications and Allergies Home Medications Medication Instructions Recorded Confirmed Type Cephalexin [Keflex] 500 mg PO Q6HR #28 cap 04/26/21 04/30/21 Rx Allergies Allergy/AdvReac Type Severity Reaction Status Date / Time Penicillins Allergy Anaphylaxis Verified 04/30/21 10:29 Physical Exam Vitals: Vital Signs Temp Pulse Pulse Resp BP BP Pulse Ox 04/30/21 19:07 54 L 16 04/30/21 19:03 98.3 F 54 L 16 105/64 98 04/30/21 14:32 97.9 F 56 L 18 98/60 99 04/30/21 11:33 97.8 F 56 L 16 98/60 99 04/30/21 11:09 80 18 102/70 99 04/30/21 08:28 98.2 F 78 18 120/70 99 Intake and Output 04/30/21 04/30/21 04/30/21 06:59 14:59 22:59 Other: Voiding Method Toilet # Voids 2 Weight 72.575 kg Results CBC & Chem 7: 04/30/21 09:21 04/30/21 09:21 Labs: Abnormal Lab Results - Last 24 Hours (Table) 04/30/21 04/30/21 Range/Units 09:21 10:47 Chloride 109 H (98-107) mmol/L Glucose 103 H (74-99) mg/dL AST 38 H (14-36) U/L Ur Leukocyte Esterase Trace H (Negative) Urine WBC 12 H (0-5) /hpf Microbiology - Last 24 Hours (Table) 04/30/21 10:47 Urine Culture - Preliminary Urine,Voided Thrombosis Risk Factor Assmnt - Choose All That Apply Any of the Below Risk Factors Present?: No Other Risk Factors: No Thrombosis Risk Factor Assessment Level: Very Low Risk
[2021-04-30] MEDS: NAPROXEN 250 MG TAB PO SCH (21:17)
[2021-05-01] MEDS: SODIUM CHLORIDE 0.9% 1,000 ML IV SCH (00:49)
[2021-05-01] MEDS: CLINDAMYCIN 600 MG in DEXTROSE 5% IN WATER 50 ML IVPB SCH ×4 (04:52→11:42)
[2021-05-01] MEDS ORDERED: LACTATED RINGERS 500 ML IV SCH (05:15)
[2021-05-01] MEDS ORDERED: LACTATED RINGERS 500 ML IV ONE (05:29)
[2021-05-01] MEDS ORDERED: KETOROLAC 15 MG/ML 1 ML VIAL IVP ONE ×2 (05:43→08:48)
[2021-05-01] MEDS: NAPROXEN 250 MG TAB PO SCH (07:52)
[2021-05-01] MEDS: NICOTINE 14MG/24HR PATCH TRANSDERM SCH (07:53)
[2021-05-01 08:04] LABS: African American GFR (CKD) >90 (>60 ml/min/1.73 sqM); Non-African American GFR(CKD) >90 (>60 ml/min/1.73 sqM)
[2021-05-01] MEDS ORDERED: PROPOFOL 10 MG/ML 20 ML VIAL IV ONE (08:05)
[2021-05-01] MEDS ORDERED: MIDAZOLAM 2 MG/2 ML VIAL ONE (08:05)
[2021-05-01] MEDS ORDERED: fentaNYL (PF) 50 MCG/ML 2 ML AMP ONE (08:05)
[2021-05-01] MEDS ORDERED: SODIUM CHLORIDE 0.9% 1,000 ML IV ONE ×2 (08:07→09:05)
[2021-05-01] MEDS ORDERED: BUPIVACAINE (PF) 0.25% 30 ML VIAL SQ ONE (08:21)
[2021-05-01] MEDS ORDERED: KETOROLAC 15 MG/ML 1 ML VIAL ONE (08:49)
[2021-05-01 08:54] VITALS: TEMP 97.4
[2021-05-01] MEDS ORDERED: diphenhydrAMINE 50 MG/ML 1 ML VIAL ONE (09:01)
[2021-05-01] MEDS ORDERED: diphenhydrAMINE 50 MG/ML 1 ML VIAL IVP ONE (09:03)
[2021-05-01] MEDS: HYDROmorphone 0.5 MG/0.5 ML SYRINGE IVP PRN (09:38)
--- NOTE | 2021-05-01 10:10 | P.OP ---
Date of Procedure: 05/01/21 Procedure(s) Performed: PREOPERATIVE DIAGNOSIS: Right breast abscess POSTOPERATIVE DIAGNOSIS: Same PROCEDURE: Incision and drainage right breast abscess SURGEON: Emili EBL: 2 mL ANESTHESIA: Gen. COMPLICATIONS: None OPERATIVE PROCEDURE: Patient sedated for the procedure. Right breast prepped and draped sterilely. Small curvilinear incision made on the edge of the areola at 9:00. Subcutaneous tissues bluntly dissected until the abscess cavity was encountered. This measured approximately 1.5 cm in diameter. Purulent fluid was evacuated and cultured. Area irrigated with saline. Irrigant packed with quarter-inch iodoform gauze. Sterile outer dressings applied. DISPOSITION: Stable to recovery room
[2021-05-01] MEDS ORDERED: VANCOMYCIN TROUGH DUE 1 EACH MISC MISCELLANE ONE (11:00)
[2021-05-01 13:24] VITALS: BP 91/46; PULSE 53; RESP 16
--- NOTE | 2021-05-01 21:18 | P.DS ---
Providers Date of admission: 04/30/21 10:35 Expected date of discharge: 05/01/21 Attending physician: Ashvin Lechuga Consults: 04/30/21 10:17 Consult Physician Routine Consulting Provider: Nash Mock Reason/Comments: Breast abscess Do you want consulting provider notified?: Yes Primary care physician: [facility] Course: Chief Complaint: Right breast abscess History of presenting complaint: This is a pleasant 31-year-old patient follows with Dr. Byrd. Patient at the age of 17 years was diagnosed with rheumatoid arthritis and fibromyalgia. She was that time per her methotrexate and folic acid. Patient did not feel good about it and subsequently at discussed. The same. Otherwise in good health. She has a 2-year-old daughter. 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 About 2 weeks ago she noticed tenderness in the right breast behind the nipple. It progressively became worse. No fever no chills. No local trauma.. She presented to the ER on April 26. Breast ultrasound was done. A phlegmon could not be ruled out. She was discharged on Keflex 500 mg 4 times a day. She took it for about 2 days. Symptoms have been getting worse. Locks more tenderness. Localized. Decided to come in. Repeat breast ultrasound was done. May 01: I&D was carried out by Dr. Jose today. Dressing in place. D iscussed with the patient that she begin 1 week course of NSAIDs and follow naproxen. Warm compresses. Tylenol as needed. Cleared by Dr. Jose for discharge. Complete course for Keflex. Patient to follow with Dr. Jose. Consultation: Dr. Jose from general surgery Past medical history to include: Rheumatoid arthritis, fibromyalgia Social history: Patient lives with her and. 2-year-old daughter. No alcohol. 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 Reviewed Physical examination: VITAL SIGNS: Afebrile, 53, 16, 101/67, 99% room air GENERAL: BMI 24.3, reclining in bed, comfortable. EYES: Pupils equal. Conjunctiva normal. NECK: JVD not raised; masses not palpable. HEART: First and second heart sounds are normal; no edema. LUNGS: Respiratory rate normal; clear to auscultation. ABDOMEN: Soft, nontender, liver spleen not palpable, no masses palpable. PSYCH: Alert and oriented x3; mood and affect normal. INVESTIGATIONS, reviewed in the clinical context: White count 8.8 hemoglobin 14.2 platelets 262 potassium 4.6 creatinine 0.64 Breast ultrasound report noted. Assessment and plan: -Right breast localized phlegmon. I&D care per Dr. Jose. Naproxen for 1 week. Keflex complete course -Chronic rheumatoid arthritis Patient has not followed with a can labeler for a long time. We'll recommend to follow the same upon discharge -Chronic nicotine dependence, cigarettes smoker Nicotine patch 14 Disposition: Home - Patient Condition at Discharge: Good Plan - Discharge Summary Discharge Rx Participant: Yes New Discharge Prescriptions: New Nicotine 14Mg/24Hr Patch [Habitrol] 1 patch TRANSDERM DAILY #14 patch Naproxen [Naprosyn] 250 mg PO TID #21 tab Acetaminophen Tab [Tylenol] 650 mg PO Q6HR PRN tab PRN Reason: Mild Pain Or Fever > 100.5 oxyCODONE HCL [OxyIR] 5 mg PO Q6H PRN 3 Days #10 tab PRN Reason: Breakthrough Pain Continue Cephalexin [Keflex] 500 mg PO Q6HR #28 cap Discharge Medication List Cephalexin [Keflex] 500 mg PO Q6HR #28 cap 04/26/21 [Rx] Acetaminophen Tab [Tylenol] 650 mg PO Q6HR PRN tab 05/01/21 [Rx] Naproxen [Naprosyn] 250 mg PO TID #21 tab 05/01/21 [Rx] Nicotine 14Mg/24Hr Patch [Habitrol] 1 patch TRANSDERM DAILY #14 patch 05/01/21 [Rx] oxyCODONE HCL [OxyIR] 5 mg PO Q6H PRN 3 Days #10 tab 05/01/21 [Rx] Follow up Appointment(s)/Referral(s): Nash Mock MD [Medical Doctor] - 1 Week Iam Byrd MD [Primary Care Provider] - 1-2 days Activity/Diet/Wound Care/Special Instructions: continue diet as tolerated. fluids are encouraged. Take dressing and packing out tomorrow and replace with smaller piece to keep incision open and to heal slowly as to not create the abscess again. kits and dressings are supplied to you. continue and finish course of Keflex per Dr. Boutt. Physicians will call and notify you if this medication needs to be changed following your cultures growth. Follow up with physicians as directed. Call with any questions comments concerns worsening returning symptoms, not tolerating diet or fluids, pain not controlled by medications prescribed to you. Discharge Disposition: HOME SELF-CARE
== END 2021-05-01 13:16 | disposition home or self-care (01) ==
LOC: EC 08:21 → 6PED 10:35
PROVIDERS: ADMIT Hospitalist; ATTEND Hospitalist
DX: N61.1 Abscess of the breast and nipple (principal); M79.7 Fibromyalgia; M06.9 Rheumatoid arthritis, unspecified; N80.9 Endometriosis, unspecified; F90.9 Attention-deficit hyperactivity disorder, unspecified type; F17.210 Nicotine dependence, cigarettes, uncomplicated; Z88.0 Allergy status to penicillin; Z80.3 Family history of malignant neoplasm of breast
CPT/HCPCS: 96376 ×2; 96374; 96375; 99285; 36415; 80053; 82565; 83605; 85025; 81001; 81025; 87040; 87070; 87086; 87205; 87075; 87077; 87186; 76642; 19020; G0378 ×2; J2250; J3370; J1200; J3010; J1885 ×2; J2704; J1170 ×2

== ENCOUNTER 2021-05-30 17:51 | Emergency (ER) | payer OTHER ==
[2021-05-30] MEDS ORDERED: HYDROcodone/APAP 5-325MG 1 EACH TAB PO STA (18:42)
--- NOTE | 2021-05-30 19:06 | ED ---
Recheck HPI - General Chief Complaint: Recheck/Abnormal Lab/Rx Stated Complaint: post op pain Time Seen by Provider: 05/30/21 18:27 Source: patient Mode of arrival: ambulatory Limitations: no limitations - History of Present Illness Initial Comments: Patient is a 31-year-old female presenting to the emergency Department with complaints of some right-sided breast tenderness. Patient states she had surgery to remove an abscess/cyst in her right breast a few weeks ago. She states she's been recovering well until yesterday she noticed some discomfort in the same area. She denies any fevers or chills, no redness to the breast. She did follow up with her primary care but is yet to see her surgeon again. She denies any chest pain or shortness of breath. She has no further complaints at this time. Upon arrival to the ER, her vitals are stable. - Related Data Previous Rx's Medication Instructions Recorded Cephalexin [Keflex] 500 mg PO Q6HR #28 cap 04/26/21 Acetaminophen Tab [Tylenol] 650 mg PO Q6HR PRN tab 05/01/21 Naproxen [Naprosyn] 250 mg PO TID #21 tab 05/01/21 Nicotine 14Mg/24Hr Patch [Habitrol] 1 patch TRANSDERM DAILY #14 patch 05/01/21 oxyCODONE HCL [OxyIR] 5 mg PO Q6H PRN 3 Days #10 tab 05/01/21 Allergies Allergy/AdvReac Type Severity Reaction Status Date / Time Penicillins Allergy Anaphylaxis Verified 04/30/21 10:29 Review of Systems ROS Statement: Those systems with pertinent positive or pertinent negative responses have been documented in the HPI. ROS Other: All systems not noted in ROS Statement are negative. Past Medical History Past Medical History: Fibromyalgia Additional Past Medical History / Comment(s): Endometreiosis, RA History of Any Multi-Drug Resistant Organisms: MRSA Date of last positivie culture/infection: 05/01/21 MDRO Source:: MRSA BREAST Additional Past Surgical History / Comment(s): D&C Past Psychological History: ADD/ADHD Smoking Status: Current every day smoker Past Alcohol Use History: None Reported Past Drug Use History: Marijuana - Past Family History Mother History Unknown: Yes General Exam - General Exam Comments Initial Comments: GENERAL: Patient is well-developed and well-nourished. Patient is nontoxic and in no acute distress. HEAD: Atraumatic, normocephalic. EYES: Pupils equal round and reactive to light, extraocular movements intact, sclera anicteric, conjunctiva are normal. Eyelids were unremarkable. ENT: Moist mucous membranes. NECK: Normal range of motion, supple without lymphadenopathy or JVD. LUNGS: Unlabored respirations. Breath sounds clear to auscultation bilaterally and equal. No wheezes rales or rhonchi. HEART: Regular rate and rhythm without murmurs, rubs or gallops. ABDOMEN: Soft, nontender, normoactive bowel sounds. No guarding, no rebound. No masses appreciated. : Deferred MUSCULOSKELETAL: Normal extremities with adequate strength and normal range of motion, no pitting or edema. No clubbing or cyanosis. NEUROLOGICAL: Patient is alert and oriented x 3. SKIN: Warm, Dry, normal turgor, no rashes or lesions noted. Patient has tenderness with palpation along the lateral aspect of the right Aries, there is no fluctuance, no cyst fell underneath the skin. There is no erythema of the skin. There is no drainage anywhere. Incision from his surgery 4 weeks ago looks well-healed. Limitations: no limitations Course Vital Signs 05/30/21 17:58 Temperature 99 F Pulse Rate 101 H Respiratory 20 Rate Blood Pressure 115/68 O2 Sat by Pulse 98 Oximetry Medical Decision Making - Medical Decision Making Patient is a 31-year-old female here with complaints of some soreness of her right breast. She is about 1 month postop right breast abscess removal. She healed well, has yet to follow up with her surgeon. There is no erythema, no fluctuance, no cyst or abscess felt on exam today. I did a redo an ultrasound of the area, no signs of a cyst, abscess or any other mass. I discussed these findings with the patient. I recommended following up with her surgeon. Her pain could be related from a possible small amount of scar tissue. She is agreeable to this. She is requesting a work note. She is stable for discharge. Case discussed with Dr. Brenner. Disposition Clinical Impression: Breast pain, right Disposition: HOME SELF-CARE Condition: Stable Instructions (If sedation given, give patient instructions): Normal Exam (ED) Additional Instructions: Please return to the Emergency Department if symptoms worsen or any other concerns. Recommend following up with your surgeon. May take Tylenol or Motrin for any discomfort. Is patient prescribed a controlled substance at d/c from ED?: No Referrals: Iam Byrd MD [Primary Care Provider] - 1-2 days Nash Mock MD [Medical Doctor] - 1-2 days Time of Disposition: 19:48
--- NOTE | 2021-05-30 19:38 | USB ---
EXAMINATION TYPE: US breast limited RT DATE OF EXAM: 05/30/2021 COMPARISON: NONE CLINICAL HISTORY: pain, hx of cyst removal. Right breast post nipple pain x 1 day, history of recent cyst removed couple weeks ago Right breast post nipple: appears wnl IMPRESSION: Ultrasound of the area of concern fails to demonstrate a solid or cystic mass. There is n o evidence of a cyst. BI-RADS Category negative
[2021-05-30 20:08] VITALS: BP 123/67; PULSE 93; RESP 16; TEMP 97.6
== END 2021-05-30 20:07 | disposition home or self-care (01) ==
LOC: EC 17:51
DX: G89.18 Other acute postprocedural pain (principal); N64.4 Mastodynia; F17.200 Nicotine dependence, unspecified, uncomplicated; Z88.0 Allergy status to penicillin; Z98.890 Other specified postprocedural states
CPT/HCPCS: 99283

== ENCOUNTER 2021-06-04 22:10 | Emergency (ER) | payer OTHER ==
[2021-06-04 22:36] VITALS: BP 111/77; PULSE 82; RESP 20; TEMP 98.7
[2021-06-05] MEDS ORDERED: LIDOCAINE 1%-EPI 1:100,000 20 ML VIAL SQ STA (00:39)
--- NOTE | 2021-06-05 01:18 | ED ---
Skin/Abscess/FB HPI - General Chief complaint: Skin/Abscess/Foreign Body Stated complaint: Lump in L armpit Time Seen by Provider: 06/05/21 00:39 Source: patient Mode of arrival: ambulatory Limitations: no limitations - History of Present Illness Initial comments: 31-year-old female presents to emergency Department with a chief complaint of a lump in the armpit. Patient reports she has sister abscesses and had one removed from her breast before. Patient reports now that this one is starting to appear in a similar fashion. States she noticed it yesterday and it is a small lesion under her armpit that is red without any associated discharge. States it is tender to the touch. States it is more painful as her arm keeps rubbing all over. She denies any fevers or chills. States for her previous abscess, she was started on Keflex which did not improve her symptoms. - Related Data Previous Rx's Medication Instructions Recorded Cephalexin [Keflex] 500 mg PO Q6HR #28 cap 04/26/21 Acetaminophen Tab [Tylenol] 650 mg PO Q6HR PRN tab 05/01/21 Naproxen [Naprosyn] 250 mg PO TID #21 tab 05/01/21 Nicotine 14Mg/24Hr Patch [Habitrol] 1 patch TRANSDERM DAILY #14 patch 05/01/21 oxyCODONE HCL [OxyIR] 5 mg PO Q6H PRN 3 Days #10 tab 05/01/21 Sulfamethox-Tmp 800-160Mg [Bactrim 1 each PO Q12HR #20 tab 06/05/21 Ds] Allergies Allergy/AdvReac Type Severity Reaction Status Date / Time Penicillins Allergy Anaphylaxis Verified 06/04/21 22:36 Review of Systems ROS Statement: Those systems with pertinent positive or pertinent negative responses have been documented in the HPI. ROS Other: All systems not noted in ROS Statement are negative. Past Medical History Past Medical History: Fibromyalgia, Rheumatoid Arthritis (RA) Additional Past Medical History / Comment(s): Endometreiosis, RA History of Any Multi-Drug Resistant Organisms: MRSA Date of last positivie culture/infection: 05/01/21 MDRO Source:: MRSA BREAST Additional Past Surgical History / Comment(s): D&C, I&D to rt axilla Past Psychological History: ADD/ADHD Smoking Status: Current every day smoker Past Alcohol Use History: None Reported Past Drug Use History: Marijuana - Past Family History Mother History Unknown: Yes General Exam Limitations: no limitations General appearance: alert, in no apparent distress Head exam: Present: atraumatic, normocephalic, normal inspection Eye exam: Present: normal appearance, PERRL, EOMI Pupils: Present: normal accommodation ENT exam: Present: normal exam, normal oropharynx, mucous membranes moist Neck exam: Present: normal inspection, full ROM. Absent: tenderness Respiratory exam: Present: normal lung sounds bilaterally. Absent: respiratory distress Cardiovascular Exam: Present: regular rate, normal rhythm, normal heart sounds. Absent: systolic murmur Extremities exam: Present: full ROM, normal capillary refill. Absent: normal inspection (Small, slightly erythematous region in the left axilla, with 1 cm diameter. No discharge or fluctuance.), tenderness Back exam: Present: normal inspection, full ROM. Absent: tenderness Neurological exam: Present: alert, oriented X3 Psychiatric exam: Present: normal affect, normal mood Skin exam: Present: warm, dry, intact, normal color Course Vital Signs 06/04/21 22:32 Temperature 98.7 F Pulse Rate 82 Respiratory 20 Rate Blood Pressure 111/77 O2 Sat by Pulse 100 Oximetry Medical Decision Making - Medical Decision Making 31-year-old female presents to the emergency department with a chief complaint of an abscess. On physical examination, this may be an early developing abscess but there is no fluctuance and no necessity for incision and drainage at this time. She states the Keflex did not work so I will start the patient on Bactrim. I advised to keep applying warm compresses. Advised to return to emergency department if the lesion continues to grow she develops any discharge. Return primary's were discussed with patient was understanding and agreeable. Disposition Clinical Impression: Skin lesion of left arm Disposition: HOME SELF-CARE Condition: Stable Instructions (If sedation given, give patient instructions): Abscess (ED) Additional Instructions: Please return to the Emergency Department if symptoms worsen or any other concerns. Prescriptions: Sulfamethox-Tmp 800-160Mg [Bactrim Ds] 1 each PO Q12HR #20 tab Is patient prescribed a controlled substance at d/c from ED?: No Referrals: Iam Byrd MD [Primary Care Provider] - 1-2 days Time of Disposition: 01:17
== END 2021-06-05 01:32 | disposition home or self-care (01) ==
LOC: EC 22:10
DX: L98.9 Disorder of the skin and subcutaneous tissue, unspecified (principal)
CPT/HCPCS: 99282

== ENCOUNTER → 2021-09-20 | Outpatient (CLI) | payer OTHER ==
--- NOTE | 2021-09-20 15:12 | US ---
EXAMINATION TYPE: Transabdominal DATE OF EXAM: 09/20/2021 3:00 PM COMPARISON: NONE CLINICAL HISTORY: O20.9 Hemorrhage in early , unspecified. EXAM PERFORMED: Transabdominal (TA) EXAM MEASUREMENTS: GESTATIONAL AGE / DATING Physician Established: Not yet established Dates by LMP: LMP unknown Dates by First Scan: No previous this is first scan here Dates by Current Scan for: (8 weeks/5 days) EDC: 04/27/2022 MATERNAL ANATOMY Uterus: 12.1 x 6.8 x 7.0 cm Right Ovary: 3.9 x 3.9 x 2.9 cm Left Ovary: 3.1 x 2.2 x 2.3 cm Post CDS / Adnexa: WNL Presence of free fluid: No Presence of corpus luteal cyst: Right Presence of subchorionic bleed: No GESTATION / SURVEY CRL: 20.32 mm (8 weeks/5 days) MSD: Appears wnl Yolk Sac (normal less than 6mm): 0.28 cm Heart Rate: 174 bpm Rhythm: Normal IUP: Viable IUP Date of LMP: Unknown Beta HcG (if available): Not available at this time Patient states having first ultrasound for this in [place]. Patient states she is st ill unaware of LMP as well as EDC. IMPRESSION: Findings compatible with 8 week 5 day gestation with a heart rate of 174 bpm and a EDC of the 04/27/20 22.
== END | disposition home or self-care (01) ==
LOC: RADUSWWP 14:34
PROVIDERS: ATTEND Obstetrics & Gynecology
DX: O20.9 Hemorrhage in early pregnancy, unspecified (principal); N91.2 Amenorrhea, unspecified; Z3A.08 8 weeks gestation of pregnancy
CPT/HCPCS: 76801